=== PATIENT | female | born 1960 | race Caucasian/White ===

== ENCOUNTER 2016-11-17 09:13 | Inpatient (IN) ==
[2016-11-17] MEDS ORDERED: ASPIRIN PO STA (09:19)
[2016-11-17 09:40] LABS: MANUAL DIFF NEEDED? NO
[2016-11-17 09:42] LABS: BASO% 0.6 % (0.0-0.8); EOS% 2.1 % (0.0-10.0); HEMATOCRIT 40.1 % (37.0-47.0); HEMOGLOBIN 12.8 g/dL (12.0-16.0); IMM GRAN# 0.01 X1000 (0.0-0.04); IMM GRAN% 0.1 % (0.0-0.5); LYMPH# 2.93 X1000 (1.2-3.4); LYMPH% 30.4 % (20.5-51.1); MCHC 31.9 g/dL (33-37); MCV 81.3 FL (81-99); MONO# 1.08 X1000 (0.11-0.59); MONO% 11.2 % (1.7-9.3); MPV 10.1 FL (7.4-10.4); NEUT% 55.6 % (42.2-75.2); PLT 359 X1000 (130-400); RBC 4.93 XMIL (4.2-5.4)
--- NOTE | 2016-11-17 09:59 | Diag Imaging Result Doc PS360 ---
EXAM: CHEST-2 VIEWS HISTORY: CP TECHNIQUE: COMPARISON: None. FINDINGS: The lungs are well expanded. The heart is not enlarged. The vessels are not distended. There are no infiltrates. No pleural effusions. IMPRESSION: No acute abnormality. Electronically signed by Koko Lopez 11/17/2016 9:57 AM
[2016-11-17 10:06] LABS: AGAP 13; ALBUMIN 3.5 g/dL (3.5-5.0); ALKALINE PHOSPHATASE 112 U/L (32-104); BUN 20 mg/dL (8-22); CALCIUM 8.7 mg/dL (8.8-10.2); CHLORIDE 107 mmol/L (98-107); CK PROFILE 36 U/L (24-173); COSMO 283; GOT 23 U/L (10-30); GPT 17 U/L (10-36); MAGNESIUM 2.2 mg/dL (1.5-2.7); POTASSIUM 4.8 mmol/L (3.5-5.1); SODIUM 141 mmol/L (136-145); TCO2 21 mmol/L (25-35); TOTAL BILIRUBIN < 0.15 mg/dL (0.20-1.00); TOTAL PROTEIN 6.8 g/dL (6.3-8.3)
[2016-11-17 10:09] LABS: INR 0.98 (0.86-1.15); PROTIME 13.3 Seconds (12.1-15.5); PTT PL 29.7 Seconds (22.6-43.9)
--- NOTE | 2016-11-17 10:12 | EKG Report ---
Test Performed on : 11/17/2016 09:26:35 AM Test Reason : CHEST PAIN Blood Pressure : / mmHG Vent. Rate : 059 BPM Atrial Rate : 059 BPM P-R Int : 156 ms QRS Dur : 072 ms QT Int : 488 ms P-R-T Axes : 021 003 -65 degrees QTc Int : 483 ms Sinus bradycardia. Low voltage QRS T wave abnormality, consider inferolateral ischemia Prolonged QT Abnormal ECG No previous ECGs available Unconfirmed Result
[2016-11-17 11:11] LABS: URINE CULTURE PL NEEDED? NO
[2016-11-17 11:20] LABS: UR AMPHETAMINES QUAL NONE DETECTED (NONE DETECT); UR BARBITUATES QUAL NONE DETECTED (NONE DETECT); UR BENZODIAZEPIN QUAL NONE DETECTED (NONE DETECT); UR CANNABINOIDS QUAL NONE DETECTED (NONE DETECT); UR COCAINE QUAL NONE DETECTED (NONE DETECT); UR MDMA QUAL NONE DETECTED (NONE DETECT); UR METHADONE QUAL NONE DETECTED (NONE DETECT); UR METHAMPHETAMINE QUAL NONE DETECTED (NONE DETECT); UR OPIATES QUAL NONE DETECTED (NONE DETECT); UR OXYCODONE QUAL NONE DETECTED (NONE DETECT); UR PCP QUAL NONE DETECTED (NONE DETECT); UR TCA QUAL NONE DETECTED (NONE DETECT)
--- NOTE | 2016-11-17 11:30 | Diag Imaging Result Doc PS360 ---
EXAM: ANGIOGRAM/PULMONARY ARTERIES HISTORY: CP with elevated D-dimer TECHNIQUE: . COMPARISON: None. FINDINGS: No pleural effusions. The heart isn't enlarged. No thoracic aortic aneurysm. There is normal opacification of the pulmonary arteries and the major branches. No enlarged mediastinal or hilar lymph nodes. No consolidation. No bronchiectasis. There is a 5 mm nonspecific density anteriorly in the right lung on image 44. A small amount of basilar atelectasis is present. IMPRESSION: 1.No pulmonary emboli 2.Cardiomegaly 3.Basilar atelectasis 4.Tiny nonspecific density in the right lung Electronically signed by Koko Lopez 11/17/2016 11:28 AM
[2016-11-17 11:46] LABS: BILIRUBIN URINE NEGATIVE (NEGATIVE); BLOOD URINE NEGATIVE (NEGATIVE); CLARITY CLEAR (CLEAR); COLOR YELLOW; GLUCOSE URINE NEGATIVE (NEGATIVE); LEUKOCYTES URINE NEGATIVE (NEGATIVE); NITRITE URINE NEGATIVE (NEGATIVE); PH URINE 6.5; SP GRAVITY URINE 1.005; UROBILINOGEN URINE NORMAL
[2016-11-17 12:01] LABS: URINE CAST NONE SEEN /LPF; URINE CRYSTAL NONE SEEN /HPF; URINE EPITHELIAL CELLS <10 /HPF (<10); URINE RBC <10 /HPF (<10); URINE SOURCE CLEAN CATCH; URINE WBC <10 /HPF (<10)
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
[2016-11-17] MEDS ORDERED: TYLENOL PO PRN (12:56)
[2016-11-17] MEDS ORDERED: LASIX IV SCH (13:00)
[2016-11-17] MEDS ORDERED: ZOFRAN IV PRN (13:08)
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
--- NOTE | 2016-11-17 16:07 | Extremity Venous Study ---
EXAM: Venous U/S Bilateral Legs HISTORY: Elevated D-dimer TECHNIQUE: COMPARISON: None. FINDINGS: Right: There is good flow and compressibility of the veins of the right lower extremity. No thrombus. Normal augmentation. Left: There is good flow and compressibility of the veins of the left lower extremity. No thrombus. Normal augmentation. IMPRESSION: No evidence of deep venous thrombosis within either lower extremity. Electronically signed by Koko Lopez 11/17/2016 4:05 PM
[2016-11-17] MEDS ORDERED: DUONEB (A & A) INH PRN (20:33)
[2016-11-17] MEDS ORDERED: ZOFRAN ODT PO PRN (20:33)
[2016-11-17] MEDS ORDERED: NORCO-5 PO PRN (20:53)
[2016-11-17] MEDS ORDERED: LEXAPRO PO SCH (21:00)
[2016-11-17] MEDS ORDERED: ABILIFY PO SCH (21:00)
[2016-11-17] MEDS ORDERED: LIPITOR PO SCH (21:00)
[2016-11-17] MEDS ORDERED: PAMELOR PO SCH (21:00)
[2016-11-17] MEDS: MARINOL PO SCH (21:12)
[2016-11-17] MEDS: ZOVIRAX PO SCH (21:13)
[2016-11-17] MEDS: XANAX PO PRN (21:18)
[2016-11-18 06:24] LABS: MANUAL DIFF NEEDED? NO
[2016-11-18 06:34] LABS: BASO% 0.7 % (0.0-0.8); EOS# 0.33 X1000 (0.0-0.7); EOS% 3.8 % (0.0-10.0); HEMATOCRIT 36.4 % (37.0-47.0); HEMOGLOBIN 11.3 g/dL (12.0-16.0); LYMPH% 29.6 % (20.5-51.1); MCH 25.4 PG (27-31); MCV 81.8 FL (81-99); MONO# 1.13 X1000 (0.11-0.59); MONO% 12.9 % (1.7-9.3); MPV 10.5 FL (7.4-10.4); PLT 306 X1000 (130-400); RBC 4.45 XMIL (4.2-5.4)
[2016-11-18 06:59] LABS: CALCIUM 8.5 mg/dL (8.8-10.2); POTASSIUM 4.6 mmol/L (3.5-5.1)
[2016-11-18] MEDS ORDERED: ASPIRIN PO SCH (09:00)
[2016-11-18] MEDS: XANAX PO PRN ×2 (10:16→16:26)
[2016-11-18] MEDS: PROAMATINE PO SCH ×3 (10:16→16:26)
[2016-11-18] MEDS: MARINOL PO SCH (10:16)
[2016-11-18] MEDS: ZOVIRAX PO SCH (10:16)
[2016-11-18 16:40] VITALS: BP 126/81
--- NOTE | 2016-11-19 16:58 | ECHO REPORT ---
ORDER DATE: 11/17/2016 INDICATIONS: CHF, chest pain. FINDINGS: 1. Right atrium is mildly enlarged at 4.1 cm. 2. Mild tricuspid regurgitation. RV systolic pressure of 37. 3. Normal RV size and systolic function. 4. Mild pulmonic insufficiency. 5. Normal left atrial size at 3.8. 6. No mitral prolapse. Mild mitral regurgitation. 7. Normal LV size, end-diastolic dimension of 3.7. Severe left ventricular hypertrophy with a posterior and interventricular septal wall thickness of 1.9 and 2.2 cm respectively. Normal LV systolic function. Calculated EF 63% with normal wall motion. 8. Aortic valve opens well. It is trileaflet. There is mild aortic insufficiency with no evidence of stenosis. 9. Aorta appears somewhat dilated at the root with a dimension of 4.1 cm. 10. No pericardial effusion seen. cc: MD Steffanie Grier CRNP
--- NOTE | 2016-11-20 05:17 | DISCHARGE SUMMARY ---
ADMISSION DATE: 11/17/2016 DISCHARGE DATE: 11/18/2016 DISCHARGE DIAGNOSES: 1. Chest pain, resolved. 2. Medical noncompliance. Patient has recently moved here without any of her medications. This is likely the cause of her chest pain. 3. Chronic schizophrenia. 4. History of breast cancer. 5. Chronic anxiety. 6. Chronic pain. CONSULTATIONS: None. PROCEDURES: None. HOSPITAL COURSE: Patient is a 56-year-old female who was admitted to the hospital. She was restarted on her home medications. She had no further complications. She had an elevated D-dimer but was noted to have a negative CTA, negative ultrasound of bilateral lower extremities. She had no swelling or edema. Her chest pain resolved on discharge. She was awake, alert. She was ambulating in the [place] without any difficulty. DISPOSITION: The patient will be discharged home. She was written 1 month of her medications to give her ample time to attempt to find a primary provider of her choice. TIME SPENT: Thirty-five minutes was spent in discharge planning and instructions. cc: Timothy Ramey MD
== END 2016-11-18 20:26 | disposition home or self-care (01) ==
LOC: P.ED 09:13 → P.MEDSURG 12:41
PROVIDERS: ATTEND Family Medicine